=== PATIENT | female | born 1940 | race African-American/Black ===

== ENCOUNTER 2022-12-01 13:03 | Emergency (ER) | payer MEDICARE, OTHER ==
[~2022-12-01] VITALS: Ht 157.5 cm; Wt 50.0 kg
[~2022-12-01 13:03] MED LIST: ALEN70TA79 MT; AMLO10TA80 MT; ATEN50TA; ATOR10TA69 MT; LOSA25TA26 MT; MIRT-89 MT; PRIM50TA5 MT
[2022-12-01 15:58] LABS: EOSINOPHILS % 1.2 % (0.0-5.0); HEMATOCRIT. 36.8 % (36.0-48.0); HEMOGLOBIN. 12.3 g/dL (12.0-16.0); LYMPHOCYTES % 22.8 % (20.0-50.0); MEAN CORPUSCULAR HEMOGLOBIN 23.1 pg (28.0-32.0); MEAN CORPUSCULAR VOLUME 69.2 fL (81.0-99.0); MEAN PLATELET VOLUME 8.3 fl (7.4-10.4); MONOCYTES % 13.5 % (2.0-8.0); NEUTROPHILS % 61.5 % (40.0-76.0); PLATELET 306 x1000/uL (130-400); RED BLOOD CELL COUNT 5.32 mill/uL (4.2-5.4); RED CELL DISTRIBUTION WIDTH 17.3 % (11.6-14.6)
[2022-12-01 16:05] LABS: CHLORIDE 106 mEq/L (98-107)
[2022-12-01 16:13] LABS: ETHANOL BLOOD < 10 mg/dL
[2022-12-01 16:28] LABS: PLATELET ESTIMATE NORMAL
[2022-12-01 18:46] LABS: CLARITY URINE CLEAR (CLEAR); COLOR URINE YELLOW (YELLOW); KETONES URINE NEGATIVE (NEGATIVE); LEUKOCYTE ESTERASE URINE TRACE (NEGATIVE); NITRITE URINE NEGATIVE (NEGATIVE); OCCULT BLOOD URINE NEGATIVE (NEGATIVE); PH URINE 6.5 (4.5-8.0); PROTEIN URINE NEGATIVE (NEGATIVE); SPECIFIC GRAVITY URINE 1.012 (1.005-1.030); UROBILINOGEN URINE 0.2 E.U./dL (0.2-1.0)
[2022-12-01 18:56] LABS: *AMPHETAMINES SCREEN URINE NEGATIVE (NEGATIVE); *BARBITURATES SCREEN URINE PRESUMTIVE POSITIVE (NEGATIVE); *BENZODIAZEPINES SCREEN URINE NEGATIVE (NEGATIVE); *COCAINE SCREEN URINE NEGATIVE (NEGATIVE); CANNABINOID URINE SCREEN NEGATIVE (NEGATIVE); METHADONE URINE SCREEN NEGATIVE (NEGATIVE); OPIATES URINE SCREEN NEGATIVE (NEGATIVE); PHENCYCLIDINE URINE SCREEN NEGATIVE (NEGATIVE)
[2022-12-02 05:16] VITALS: BP 119/66
== END 2022-12-02 18:30 | disposition home or self-care (01) ==
LOC: ER 13:03
DX: T74.11XA Adult physical abuse, confirmed, initial encounter (principal); Y07.499 Other family member, perpetrator of maltreatment and neglect; F41.9 Anxiety disorder, unspecified; R41.82 Altered mental status, unspecified; E11.9 Type 2 diabetes mellitus without complications; I10 Essential (primary) hypertension
CPT/HCPCS: 36415; 80053; 80305; 80307; 80320; 80329; 81003; 82962; 85025; 99283; G0480

== ENCOUNTER 2023-05-24 15:37 | Emergency (ER) | payer MEDICARE ==
[~2023-05-24] VITALS: Ht 157.5 cm; Wt 62.0 kg
[2023-05-24 15:56] VITALS: BP 147/55; PULSE 65; RESP 16; TEMP 98; O2SAT 97
[2023-05-24] MEDS ORDERED: MORPHINE SULFATE 2 MG/ML CPJ (NOT FOR IM USE) IV ONE (16:15)
[2023-05-24] MEDS ORDERED: ONDANSETRON HCL 4MG/2ML INJ IV ONE (16:15)
[2023-05-24 17:31] LABS: HEMATOCRIT. 36.7 % (36.0-48.0); HEMOGLOBIN. 11.9 g/dL (12.0-16.0); MEAN CORPUSCULAR HEMOGLOBIN 22.4 pg (28.0-32.0); MEAN CORPUSCULAR HGB CONC 32.5 g/dL (31.0-37.0); MEAN CORPUSCULAR VOLUME 69.1 fL (81.0-99.0); MEAN PLATELET VOLUME 8.1 fl (7.4-10.4); PLATELET 338 x1000/uL (130-400); RED BLOOD CELL COUNT 5.31 mill/uL (4.2-5.4); RED CELL DISTRIBUTION WIDTH 17.9 % (11.6-14.6); WHITE BLOOD COUNT 14.4 x1000/uL (4.5-11.0)
[2023-05-24 17:35] LABS: DIFFERENTIAL COMMENT 1
[2023-05-24 17:38] LABS: INR 1.1; PROTHROMBIN TIME 11.5 sec (9.6-11.0)
[2023-05-24 17:39] LABS: CHLORIDE 109 mEq/L (98-107); INDEX HEMOLYSI 1 (1-3); INDEX ICTERIC 1 (1-4); INDEX LIPEMIC 1 (1-3); POTASSIUM 3.6 mEq/L (3.5-5.1); SODIUM 142 mEq/L (136-145)
[2023-05-24 17:49] LABS: ALANINE AMINOTRANSFERASE 23 IU/L (13-61); ALBUMIN 3.6 g/dL (3.4-5.0); ASPARTATE AMINOTRANSFERASE 14 IU/L (15-37); BILIRUBIN TOTAL 0.6 mg/dL (0.1-1.0); CALCIUM 9.5 mg/dL (8.5-10.1); CARBON DIOXIDE 26 mEq/L (21-32); CREATININE 0.7 mg/dL (0.6-1.3); GLUCOSE 148 mg/dL (70-105); PROTEIN TOTAL 7.7 g/dL (6.0-8.3); TROPONIN I HIGH SENSITIVITY 6 ng/L (<54); UREA NITROGEN BLOOD 12 mg/dL (7-21)
[2023-05-24 18:06] LABS: ANISOCYTOSIS 1+; HYPOCHROMASIA 1+; MICROCYTOSIS 3+; PLATELET ESTIMATE NORMAL
== END 2023-05-24 20:00 | disposition left against medical advice (07) ==
LOC: ER 15:37
DX: R10.9 Unspecified abdominal pain (principal); E11.9 Type 2 diabetes mellitus without complications; I10 Essential (primary) hypertension
CPT/HCPCS: 36415; 80053; 83605; 84484; 85025; 93005; 99284

== ENCOUNTER 2024-10-28 15:50 | Emergency (ER) | payer BC, MEDICARE ==
[~2024-10-28] VITALS: Ht 162.6 cm; Wt 46.0 kg
[2024-10-28 15:51] VITALS: O2SAT 99
[2024-10-28] MEDS ORDERED: ACETAMINOPHEN 325MG TABLET PO STA (15:59)
[2024-10-28 17:38] LABS: BASOPHILS % 1.1 % (0.0-2.0); DIFFERENTIAL COMMENT 0; EOSINOPHILS % 0.5 % (0.0-5.0); HEMATOCRIT. 37.6 % (36.0-48.0); HEMOGLOBIN. 12.2 g/dL (12.0-16.0); LYMPHOCYTES % 12.6 % (20.0-50.0); MEAN CORPUSCULAR HGB CONC 32.4 g/dL (31.0-37.0); MEAN PLATELET VOLUME 8.3 fl (7.4-10.4); MONOCYTES % 8.8 % (2.0-8.0); PLATELET 322 x1000/uL (130-400); RED BLOOD CELL COUNT 5.29 mill/uL (4.2-5.4); RED CELL DISTRIBUTION WIDTH 17.7 % (11.6-14.6); WHITE BLOOD COUNT 10.9 x1000/uL (4.5-11.0)
[2024-10-28 17:45] LABS: CHLORIDE 108 mEq/L (98-107); POTASSIUM 3.9 mEq/L (3.5-5.1); SODIUM 141 mEq/L (136-145)
[2024-10-28 17:46] LABS: CALCIUM 9.4 mg/dL (8.7-10.4); CARBON DIOXIDE 25 mEq/L (21-32)
[2024-10-28 17:51] LABS: CREATININE 0.7 mg/dL (0.6-1.0); GLUCOSE 114 mg/dL (70-105); UREA NITROGEN BLOOD 21 mg/dL (9-23)
[2024-10-28 18:14] LABS: TROPONIN I HIGH SENSITIVITY < 4 ng/L (3.0-34)
[2024-10-28 19:55] VITALS: BP 117/69; PULSE 88; RESP 19; TEMP 37.1; O2SAT 99
== END 2024-10-28 20:05 | disposition home or self-care (01) ==
LOC: ER 15:50
DX: R07.9 Chest pain, unspecified (principal); I10 Essential (primary) hypertension; F41.9 Anxiety disorder, unspecified; E11.9 Type 2 diabetes mellitus without complications; M25.78 Osteophyte, vertebrae; Z79.899 Other long term (current) drug therapy; Z86.73 Personal history of transient ischemic attack (TIA), and cerebral infarction without residual deficits
CPT/HCPCS: 36415; 71101; 80048; 83880; 84484; 85025; 93005; 99285

== ENCOUNTER 2025-02-19 12:25 | Emergency (ER) | payer BC ==
[~2025-02-19] VITALS: Ht 157.5 cm; Wt 50.0 kg
[2025-02-19 12:34] VITALS: O2SAT 98
[2025-02-19] MEDS: NAPROXEN 250MG TABLET PO ONE (14:51)
[2025-02-19 15:15] VITALS: BP 131/75; PULSE 82; RESP 20; TEMP 36.9; O2SAT 98
== END 2025-02-19 15:20 | disposition home or self-care (01) ==
LOC: ER 12:25
DX: M71.22 Synovial cyst of popliteal space [Baker], left knee (principal); M25.562 Pain in left knee; M25.561 Pain in right knee; F41.9 Anxiety disorder, unspecified; E11.9 Type 2 diabetes mellitus without complications; I10 Essential (primary) hypertension; Z79.899 Other long term (current) drug therapy
CPT/HCPCS: 93971; 99284

== ENCOUNTER 2025-09-08 12:30 | Emergency (ER) | payer BC ==
[~2025-09-08] VITALS: Ht 157.5 cm; Wt 50.0 kg
[2025-09-08 12:34] VITALS: O2SAT 97
[2025-09-08] MEDS: ACETAMINOPHEN 325MG TABLET PO ONE (13:30)
[2025-09-08] MEDS ORDERED: ACET-2708 MT (14:47)
[2025-09-08 15:01] VITALS: BP 176/71; PULSE 76; RESP 19; TEMP 36.8; O2SAT 98
== END 2025-09-08 15:01 | disposition home or self-care (01) ==
LOC: ER 12:30
DX: S40.012A Contusion of left shoulder, initial encounter (principal); S70.02XA Contusion of left hip, initial encounter; E11.9 Type 2 diabetes mellitus without complications; F41.9 Anxiety disorder, unspecified; I10 Essential (primary) hypertension; Z79.899 Other long term (current) drug therapy; W01.0XXA Fall on same level from slipping, tripping and stumbling without subsequent striking against object, initial encounter; Y93.01 Activity, walking, marching and hiking; Y92.89 Other specified places as the place of occurrence of the external cause; Y99.8 Other external cause status
CPT/HCPCS: 73030; 73502; 99284